=== PATIENT | female | born 1990 | race Caucasian/White ===

== ENCOUNTER 2021-02-19 06:52 | Inpatient (IN) ==
[2021-02-19] MEDS ORDERED: NALOXONE HCL 0.4 MG/ML VIAL IV PRN (08:25)
[2021-02-19] MEDS ORDERED: ONDANSETRON HCL/PF 2 MG/ML VIAL IV PRN ×2 (08:25→10:49)
[2021-02-19] MEDS ORDERED: HYDROmorphone HCL 2 MG/ML VIAL IV PRN (08:25)
[2021-02-19] MEDS ORDERED: PROCHLORPERAZINE EDISYLATE 5 MG/ML VIAL IV PRN (08:25)
[2021-02-19] MEDS ORDERED: RINGER'S SOLUTION,LACTATED 1,000 ML IV PRN (08:25)
[2021-02-19] MEDS ORDERED: diphenhydrAMINE HCL 50 MG/ML VIAL IV PRN (08:25)
[2021-02-19] MEDS ORDERED: BUPIVACAINE HCL/EPINEPHRINE 50 ML VIAL ONE (08:29)
[2021-02-19] MEDS ORDERED: MIDAZOLAM HCL/PF 5 MG/ML VIAL ONE (08:29)
[2021-02-19] MEDS ORDERED: fentaNYL CITRATE/PF 50 MCG/ML AMPUL ONE (08:29)
[2021-02-19] MEDS ORDERED: ONDANSETRON HCL/PF 2 MG/ML VIAL ONE (08:29)
[2021-02-19] MEDS ORDERED: CLINDAMYCIN IN 0.9 % SOD CHLOR 900 MG/50 ML BAG IV PRN (08:30)
--- NOTE | 2021-02-19 08:40 | ANES ---
Anesthesia Pre Procedure Eval Vitals/Labs: Last Vital Signs Temp 36.2 C 02/19/21 07:15 Pulse 79 02/19/21 07:15 Resp 18 02/19/21 07:15 BP 132/84 02/19/21 07:15 Pulse Ox 100 02/19/21 07:15 HOME MEDICATIONS ferrous sulfate 325 mg (65 mg iron) tablet,delayed release 325 mg PO DAILY #30 tab 11/30/20 [Last Taken Unknown] calcium carbonate 200 mg calcium (500 mg) chewable tablet 200 mg PO QID PRN 01/04/21 [Last Taken Unknown] Vits96/Iron Fum/Folic [ S] 1 tab PO DAILY 02/19/21 [Last Taken Unknown] Allergies/Adverse Reactions: Allergies Allergy/AdvReac Type Severity Reaction Status Date / Time ceftriaxone sodium Allergy Intermediate Hives Verified 02/14/21 10:37 [From Rocephin] - Planned Procedure Planned Procedure: Repeat C/S Medication List Reviewed:: Yes Allergies Verified: Yes Medical History (Last Reviewed 02/19/21 @ 08:39 by Geoff Peralta CRNA) Anemia (Acute) Onset Date: 10/2020 w/ Recurrent loss (Chronic) 2015, 2017, 2019 Body piercing Onset Date: Unknown Tattoos Onset Date: Unknown Spontaneous Onset Date: Unknown x3 Surgical History (Last Reviewed 02/19/21 @ 08:39 by Geoff Peralta CRNA) Previous section (Chronic) Onset Date: 02/12/09 d/t breech presentation History of tooth extraction Onset Date: Unknown Status post hysteroscopy Onset Date: 07/14/19 w/suction curettage Family History (Last Reviewed 02/19/21 @ 08:39 by Geoff Peralta CRNA) Mother Dementia, Onset Age: 49 Father Hypertension Hyperlipemia - Family Anesthesia History Family History:: no untoward family reactions to anesthesia, no familial bleeding tendencies, no family history of clotting disorders, no family history of premature - Airway/Neck/Teeth Within Normal Limits:: Yes Teeth Condition: intact Mallampatti Score: 1 Thyromental (T-M) distance: > 6 cm Mandibulo Hyoid distance: > 3 cm - Respiratory Respiratory Physical: lungs clear Smoking Status: Never smoker Discussed smoking cessation including day of surgery: No Sleep Apnea currently treated: No Sleep Apnea by current assessment: No Discussed Risks/Treatment of MARICRUZ: No - Cardiovascular Tolerate Activity: Good Heart Sounds: S1 & S2, Regular - Gastrointestinal NPO since: mn - Anesthesia Assessment and Plan ASA Class: PS, II Anesthesia Type Plan: Block - Bilateral TAP blocks for postop analgesia, Spinal
[2021-02-19] MEDS ORDERED: OXYTOCIN/0.9 % SODIUM CHLORIDE 30 UNITS/500 ML BAG IV ONE ×2 (09:36→10:49)
--- NOTE | 2021-02-19 10:46 | OR ---
Operative Report - Dictated Report Narrative: Indication: 30-year-old 5 para 1 at 38 5/7 weeks with prior presents to labor and delivery in labor with occasional late deceleration and frequent variables. status: Urgent Pre Operative Diagnosis: 38-5/7 intrauterine . Prior section. Labor. Post Operative Diagnosis: Same. Oligohydramnios. Procedure: Repeat low transverse section. Abdominal scar revision - 16cm Surgeon: Savita Campbell DO City Superintendent: OR Staff Anesthesia: Spinal, TAP block Estimated Blood Loss: 100 mL Urine Output: 25 mL clear urine Fluids Replacement: 1800 mL Drains: Rodas to gravity Surgical Complications: None Specimens: Placenta to pathology Findings: Male born at 0933 on 02/19/2023 with Apgars 8 and 8, weighing 3523 g in emilia breech presentation. Normal uterus and ovaries. Paratubal cyst on left fallopian tube. Normal-appearing right fallopian tube. Minimum amniotic fluid. Technique: The patient was taken to the operating room and placed in dorsal supine position with a left lateral tilt. After adequate spinal anesthesia, rodas catheter inserted, SCDs placed, and clindamycin 900 mg IV given preoperatively, the previous scar was excised in an elliptical fashion and the abdominal cavity was entered using sharp and blunt dissection. A transverse incision was made in the lower uterine segment and extended laterally and upwardly with digital traction. No fluid was noted upon hysterotomy. The infan t was delivered easily in emilia breech presentation. After 1 minute, the cord was clamped and cut and infant was handed off to awaiting professor of management. The placenta was allowed to deliver spontaneously. The uterus was cleared of clot and debris. Uterine incision was closed with 0 Vicryl using a running stitch. A second imbricating layer was placed. Excellent hemostasis was noted. The peritoneum was closed with a running 3-0 Monocryl. The same suture was used to approximate the rectus and pyramidalis muscles. The fascia was closed with a running 0 Vicryl suture. The subcutaneous layer was closed with a running 3-0 Monocryl. The same suture was used to approximate the subdermal layer. The skin was closed with a running 4-0 Monocryl and Dermabond. Sponge, lap, needle, and instrument count were correct x 2. Disposition: To post anesthesia care unit in good condition
[2021-02-19] MEDS ORDERED: BISACODYL 10 MG SUPP.RECT RC PRN (10:49)
[2021-02-19] MEDS ORDERED: SIMETHICONE 80 MG TAB.CHEW PO PRN (10:49)
[2021-02-19] MEDS ORDERED: DEXTROSE 5%-LACTATED RINGERS 1,000 ML IV PRN (10:49)
[2021-02-19] MEDS ORDERED: ACETAMINOPHEN 325 MG TABLET PO PRN (10:49)
[2021-02-19] MEDS ORDERED: SENNOSIDES 8.6 MG TABLET PO PRN (10:49)
--- NOTE | 2021-02-19 10:50 | ANES ---
Post Anesthesia Discharge - Transfer of Care Transfer of Care handoff given to nurse: Yes - Discharge from PACU Discharge from PACU when meets criteria: Yes - Discharge to ASU Discharge to ASU-no complications/pt stable: Yes
--- NOTE | 2021-02-19 10:52 | ANES ---
Anesthesia Procedure Note Procedure Note: ANESTHESIA PROCEDURE NOTE Date of Procedure: 02/19/2021. Time of procedure: 1035. Performed by: Geoff Peralta CRNA General Accounting Clerk: None. Preprocedure diagnosis: Repeat . Post procedure diagnosis: Same. Procedure: Bilateral ultrasound-guided transversus abdominis plane block for postop analgesia. Indications: The patient is a 30-year-old female post section. Findings: See below. Details of the procedure: ChloraPrep was used on the patient's abdomen and the procedure was performed under sterile technique. The right abdominal fascial layer between the internal oblique muscle and the transversus abdominis muscles was identified under ultrasound guidance. A 21-gauge 4 inch block needle was inserted under ultrasound guidance to the target fascial plane. 15 mL's of 0.5% bupivacaine plus epinephrine 1:200,000 was injected after negative aspiration for blood. The needle was removed intact and the procedure was then repeated at the left side. No complications were noted. The images were retained in the hospital medical database. EBL: Minimal. Fluids: N/A. Specimen: N/A. Post procedure condition: The patient tolerated the procedure well. No complications were noted. Thank you for this consultation. Geoff Peralta CRNA
--- NOTE | 2021-02-19 11:07 | ANES ---
Post Anesthesia Assessment - Vital Signs Vitals: Last Vital Signs Temp 36.3 C 02/19/21 10:50 Pulse 81 02/19/21 10:50 Resp 21 H 02/19/21 10:50 BP 127/62 02/19/21 10:50 Pulse Ox 100 02/19/21 10:50 Airway Patency: Normal - Mental Status Level Of Consciousness: Awake - Pain Level Pain Score: 4 - N/V Assessment Nausea/Vomiting Presence: None Dehydration:: No
--- NOTE | 2021-02-19 13:14 | PN ---
Progess Note - Interim Date: 02/19/21 Time: 13:14 History for MU History for MU Definition: * The number of deliveries resulting in a live the patient experienced prior to current hospitalization * The previous delivery of live twins or any live multiple gestation is considered one live event. *If primagravida or nulliparous is documented select zero for the number of previous live births. Live Events: Live Events: 1
[2021-02-19] MEDS: oxyCODONE HCL/ACETAMINOPHEN 1 TAB TABLET PO PRN ×3 (13:53→20:02)
[2021-02-19] MEDS: IBUPROFEN 800 MG TABLET PO PRN ×2 (13:54→20:02)
[2021-02-19] MEDS: ENOXAPARIN SODIUM 40 MG/0.4 ML SYRG SC SCH (20:11)
[2021-02-19] MEDS: DOCUSATE SODIUM 100 MG CAPSULE PO SCH (20:11)
[2021-02-20] MEDS: oxyCODONE HCL/ACETAMINOPHEN 1 TAB TABLET PO PRN ×5 (00:18→19:23)
[2021-02-20] MEDS: IBUPROFEN 800 MG TABLET PO PRN ×3 (02:03→19:24)
[2021-02-20] MEDS: DOCUSATE SODIUM 100 MG CAPSULE PO SCH ×2 (08:50→21:33)
--- NOTE | 2021-02-20 09:18 | PN ---
Subjective - Date and Time Seen Date: 02/20/21 Time: 09:17 Objective - Vitals Vitals: Last Vital Signs Temp 36.1 C 02/20/21 07:05 Pulse 69 02/20/21 07:05 Resp 16 02/20/21 07:05 BP 127/64 02/20/21 07:05 Pulse Ox 99 02/20/21 07:05 Patient denies complaints. Tolerating regular diet. Ambulating without difficulty. Pain well controlled. Lochia wnl. Abdomen - soft, appropriately tender Incision -clean, dry, intact uterus - firm, at umbilicus -1 No calf tenderness Impression: Post op day #1 s/p repeat section with abdominal scar revision. Breast-feeding. Plan: Continue routine post-operative/ care Cauti Physician Documentation - Urinary Catheter Management Urethral (Vasquez) Date of Insertion: 02/19/21 Time of Insertion: 09:15 Date of Removal: 02/19/21 Time of Removal: 21:48
[2021-02-20] MEDS: ENOXAPARIN SODIUM 40 MG/0.4 ML SYRG SC SCH (19:18)
[2021-02-21] MEDS: IBUPROFEN 800 MG TABLET PO PRN ×2 (03:11→12:04)
--- NOTE | 2021-02-21 09:44 | PN ---
Subjective - Date and Time Seen Date: 02/21/21 Time: 09:42 Objective - Vitals Vitals: Last Vital Signs Temp 37.0 C 02/21/21 07:39 Pulse 65 02/21/21 07:39 Resp 16 02/21/21 07:39 BP 103/55 02/21/21 07:39 Pulse Ox 98 02/21/21 07:39 Patient denies complaints. Ambulating well. Tolerating regular diet. Pain well controlled. Lochia wnl. Abdomen - soft, appropriately tender Incision -clean, dry, intact uterus - firm, at umbilicus -2 No calf tenderness Impression: Post op day #2 s/p repeat section. Plan: Continue routine post-operative/ care Cauti Physician Documentation - Urinary Catheter Management Urethral (Vasquez) Date of Insertion: 02/19/21 Time of Insertion: 09:15 Date of Removal: 02/19/21 Time of Removal: 21:48 Assessment/Plan - Problems/Diagnosis (1) Status post repeat low transverse section Problem: Acute (2) Anemia Problem: Chronic Qualifiers: Anemia type: iron deficiency Iron deficiency anemia type: inadequate dietary iron intake Qualified Code(s): D50.8 - Other iron deficiency anemias (3) Previous section Problem: Chronic (4) Recurrent loss Problem: Chronic
[2021-02-21] MEDS: DOCUSATE SODIUM 100 MG CAPSULE PO SCH ×3 (11:34→21:04)
[2021-02-21] MEDS: ENOXAPARIN SODIUM 40 MG/0.4 ML SYRG SC SCH (18:57)
[2021-02-21] MEDS: oxyCODONE HCL/ACETAMINOPHEN 1 TAB TABLET PO PRN (22:57)
--- NOTE | 2021-02-22 09:36 | PN ---
Subjective - Date and Time Seen Date: 02/22/21 Time: 07:00 Objective - Vitals Vitals: Last Vital Signs Temp 36.3 C 02/22/21 08:06 Pulse 61 02/22/21 08:06 Resp 18 02/22/21 08:06 BP 130/67 02/22/21 08:06 Pulse Ox 100 02/22/21 08:06 Patient denies complaints. Ambulating without difficulty. Tolerating regular diet. Pain well controlled. Lochia wnl. Abdomen - soft, appropriately tender Incision -clean, dry, intact uterus - firm, at umbilicus -3 No calf tenderness Impression: Post op day #3 s/p repeat section. Abdominal scar revision. Baby staying to rule out infection. Plan: Routine discharge instructions. Board for baby Cauti Physician Documentation - Urinary Catheter Management Urethral (Vasquez) Date of Insertion: 02/19/21 Time of Insertion: 09:15 Date of Removal: 02/19/21 Time of Removal: 21:48 Assessment/Plan - Problems/Diagnosis (1) Status post repeat low transverse section Problem: Acute (2) Anemia Problem: Chronic Qualifiers: Anemia type: iron deficiency Iron deficiency anemia type: inadequate dietary iron intake Qualified Code(s): D50.8 - Other iron deficiency anemias (3) Previous section Problem: Chronic (4) Recurrent loss Problem: Chronic
[2021-02-22] MEDS: DOCUSATE SODIUM 100 MG CAPSULE PO SCH ×2 (11:01→20:45)
[2021-02-22] MEDS: IBUPROFEN 800 MG TABLET PO PRN ×2 (13:30→20:46)
--- NOTE | 2021-02-22 19:39 | DS ---
OB Discharge Summary (1) Status post repeat low transverse section Status: Acute (2) Anemia Status: Chronic Qualifiers: Anemia type: iron deficiency Iron deficiency anemia type: inadequate dietary iron intake Qualified Code(s): D50.8 - Other iron deficiency anemias (3) Previous section Status: Chronic (4) Recurrent loss Status: Chronic (5) Oligohydramnios delivered Status: Resolved Delivery Date: 02/19/21 Delivery Time: 09:33 :: 5 Para:: 2 Gestational weeks:: 38 Gestational days:: 5 Intrapartum Procedures: Secondary Section, Delivery-Low Transverse, Anesthesia - Spinal /OP Complications: No Complications Discharge Diagnosis: Term -Delivered, Rubella Immune - Discharge Information Date of Discharge: 02/22/21 Hospital Course: 30-year-old 5 para 1 admitted at 38 5/7 weeks with prior section in labor complicated by late decelerations and oligohydramnios. She underwent a repeat low transverse section with abdominal scar revision. Surgery and course were uncomplicated. Discharge Location: Home Disposition: Home self-care Condition: Good Activity on Discharge:: Activity as tolerated, Pelvic Rest, No lifting Discharge Diet: General/regular food Additional Patient Instructions (free text): Lashawn, your follow up visit with Dr. Campbell is March 08 at 3:15 PM. Please don't hesitate to call with any questions or concerns. Prescriptions (Any new or edited meds): Ibuprofen [Motrin] 200 - 800 mg PO Q6H PRN #100 tab PRN Reason: Pain oxyCODONE HCL/ACETAMINOPHEN [Percocet 5 MG/325 MG] 1 tab PO Q4H PRN #10 tab PRN Reason: Moderate Pain Transmission Status: Received by [facility] #[id number] Complete Home Medications List: Complete Home Medication List: ferrous sulfate 325 mg (65 mg iron) tablet,delayed release 325 mg PO DAILY #30 tab 11/30/20 calcium carbonate 200 mg calcium (500 mg) chewable tablet 200 mg PO QID PRN 01/04/21 Vits96/Iron Fum/Folic [ S] 1 tab PO DAILY 02/19/21 Ibuprofen [Motrin] 200 - 800 mg PO Q6H PRN #100 tab 02/21/21 oxyCODONE HCL/ACETAMINOPHEN [Percocet 5 MG/325 MG] 1 tab PO Q4H PRN #10 tab 02/21/21 - Plan Discharge to:: Home Follow up in office in:: 2 weeks - Information Weight (Grams): 3,523 Infant Sex: Male Score 1 min: 8 Score 5 min: 8 Complications: Oligohydraminos, Other - occasional late decelerations
[2021-02-22] MEDS: ENOXAPARIN SODIUM 40 MG/0.4 ML SYRG SC SCH (20:45)
[2021-02-22] MEDS: oxyCODONE HCL/ACETAMINOPHEN 1 TAB TABLET PO PRN (20:46)
[2021-02-22 21:44] VITALS: BP 143/79
== END 2021-02-22 23:59 | disposition home or self-care (01) | DRG 787 ==
LOC: OBCLINIC 06:52 → OB 07:41 → MS 02-22 11:43
PROVIDERS: ADMIT Obstetrics & Gynecology; ATTEND Obstetrics & Gynecology